=== PATIENT | female | born 1945 | race Caucasian/White ===

== ENCOUNTER 2021-04-07 04:29 | Inpatient (IN) | payer OTHER ==
[~2021-04-07] VITALS: Ht 160 cm; Wt 56.7 kg
[2021-04-07 04:51] LABS: RED BLOOD COUNT 3.63 M/UL (4.00-5.10); WHITE BLOOD COUNT 15.1 K/UL (4.5-11.0)
[2021-04-07 05:18] LABS: BUN/CREATININE RATIO 19 (0-10)
[2021-04-07 06:34] LABS: ADENOVIRUS F 40/41 Not Detected (Negative); ASTROVIRUS Not Detected (Negative); CAMPYLOBACTER Not Detected (Negative); CRYPTOSPORIDIUM Not Detected (Negative); E.COLI 0157 Not Detected (Negative); ENTAMOEBA HISTOLYTICA Not Detected (Negative); ENTEROAGGREGATIVE E.COLI (EAEC Not Detected (Negative); ENTEROPATHOGENIC E.COLI (EPEC) Not Detected (Negative); ENTEROTOXIGENIC E.COLI (ETEC) Not Detected (Negative); GIARDIA LAMBLIA Not Detected (Negative); NOROVIRUS GI/GII Not Detected (Negative); PLESIOMONAS SHIGELLOIDES Not Detected (Negative); ROTOVIRUS A Not Detected (Negative); SALMONELLA Not Detected (Negative); SAPOVIRUS Not Detected (Negative); SHIG/ENTEROINVAS.ECOLI (EIEC) Not Detected (Negative); SHIGA-LIK TOX.PRO.E.COLI (STEC Not Detected (Negative); VIBRIO Not Detected (Negative); VIBRIO CHOLERAE Not Detected (Negative); YERSINIA ENTEROCOLITICA Not Detected (Negative)
[2021-04-07 09:58] LABS: CLOSTRIDIUM DIFFICILE TOX A/B Not Detected (Negative)
[2021-04-07] MEDS ORDERED: PROAIR HFA8.5 GM INH (14:09)
[2021-04-07] MEDS ORDERED: ZOFRAN ODT 4 MG4 MG PO (14:10)
[2021-04-07] MEDS ORDERED: CRESTOR10 MG PO (14:10)
[2021-04-07] MEDS ORDERED: PREDNISONE10 MG PO (14:10)
[2021-04-07] MEDS ORDERED: METOPROLOL SUCC25 MG PO (14:10)
[2021-04-07] MEDS ORDERED: LEVOTHYROXINE88 MCG PO (14:11)
[2021-04-07] MEDS ORDERED: FAMOTIDINE20 MG PO (14:11)
[2021-04-07] MEDS ORDERED: PYRIDOSTIGMINE60 MG PO (14:12)
[2021-04-07] MEDS ORDERED: ELIQUIS5 MG PO (14:12)
[2021-04-08 08:50] LABS: BUN/CREATININE RATIO 20 (0-10)
[2021-04-08 17:19] LABS: HEMOGLOBIN 9.9 gm/dl (12.3-15.3); RED BLOOD COUNT 3.29 M/UL (4.00-5.10); WHITE BLOOD COUNT 14.7 K/UL (4.5-11.0)
[2021-04-09 03:57] LABS: HEMOGLOBIN 9.2 gm/dl (12.3-15.3); RED BLOOD COUNT 3.12 M/UL (4.00-5.10); WHITE BLOOD COUNT 13.7 K/UL (4.5-11.0)
[2021-04-09 10:14] LABS: BUN/CREATININE RATIO 24 (0-10)
[2021-04-09 12:05] LABS: HEMOGLOBIN 9.7 gm/dl (12.3-15.3); RED BLOOD COUNT 3.31 M/UL (4.00-5.10); WHITE BLOOD COUNT 15.7 K/UL (4.5-11.0)
[2021-04-09 13:51] LABS: BUN/CREATININE RATIO 28 (0-10)
[2021-04-09] MEDS ORDERED: LOW DOSE ASPIRI81 MG PO (16:27)
[2021-04-09] MEDS ORDERED: FLONASE 0.05% N16 GM (16:28)
[2021-04-10 05:37] LABS: RED BLOOD COUNT 3.06 M/UL (4.00-5.10); WHITE BLOOD COUNT 14.8 K/UL (4.5-11.0)
[2021-04-10 06:05] LABS: BUN/CREATININE RATIO 26 (0-10)
[2021-04-11 04:08] LABS: HEMOGLOBIN 8.8 gm/dl (12.3-15.3); RED BLOOD COUNT 2.95 M/UL (4.00-5.10)
[2021-04-11 05:18] LABS: BUN/CREATININE RATIO 31 (0-10)
[2021-04-13] MEDS ORDERED: ROBITUSSIN AC PO (11:28)
[2021-04-13] MEDS ORDERED: PYRIDOSTIGMINE60 MG PO (11:28)
[2021-04-13] MEDS ORDERED: BENZONATATE100 MG PO (11:28)
--- NOTE | 2021-04-14 17:54 | NUR ---
AGREE WITH PREVIOUS CARE TRANSITION MGR. ORIENTED PATIENT TO FLOOR AND UNIT.
[2021-04-16 04:17] LABS: HEMOGLOBIN 9.5 gm/dl (12.3-15.3); RED BLOOD COUNT 3.12 M/UL (4.00-5.10); WHITE BLOOD COUNT 21.6 K/UL (4.5-11.0)
[2021-04-16 04:28] LABS: BUN/CREATININE RATIO 42 (0-10)
[2021-04-16] MEDS ORDERED: MAGNESIUM400 MG PO (09:36)
[2021-04-17] MEDS ORDERED: PREDNISONE10 MG PO (10:25)
[2021-04-17] MEDS ORDERED: IPRAT-ALBUT 0.5-3 ML INH (10:31)
[2021-04-17] MEDS ORDERED: PULMICORT0.5 MG/21 INH (10:31)
[2021-04-17] MEDS ORDERED: ACETAMINOPHEN325 MG PO (10:31)
== END 2021-04-17 16:02 | DRG 177 ==
LOC: ER1 04:29 → MED SURG 4 04-09 11:17 → CDU 04-09 11:17 → 3 EAST 04-11 15:04 → PROG CARE 04-12 07:29 → MED SURG 4 04-14 17:26
PROVIDERS: Internal Medicine; Physician Assistant; ADMIT Internal Medicine Infectious Disease
PROC: 5A0955A Assistance with Respiratory Ventilation, Greater than 96 Consecutive Hours, High Flow/Velocity Cannula (ICD-10-PCS; 2021-04-07)
PROC: 8E0ZXY6 Isolation (ICD-10-PCS; principal; 2021-04-09)
DX: U07.1 COVID-19 (principal); J96.01 Acute respiratory failure with hypoxia; J12.82 Pneumonia due to coronavirus disease 2019; N17.0 Acute kidney failure with tubular necrosis; J47.0 Bronchiectasis with acute lower respiratory infection; N13.2 Hydronephrosis with renal and ureteral calculous obstruction; T38.0X5A Adverse effect of glucocorticoids and synthetic analogues, initial encounter; H91.90 Unspecified hearing loss, unspecified ear; J84.10 Pulmonary fibrosis, unspecified; I48.0 Paroxysmal atrial fibrillation; J43.9 Emphysema, unspecified; Z96.653 Presence of artificial knee joint, bilateral; G70.00 Myasthenia gravis without (acute) exacerbation; E03.9 Hypothyroidism, unspecified; D72.828 Other elevated white blood cell count; K21.9 Gastro-esophageal reflux disease without esophagitis; R31.0 Gross hematuria; E87.5 Hyperkalemia; R53.81 Other malaise; E87.6 Hypokalemia; E83.51 Hypocalcemia; Z79.01 Long term (current) use of anticoagulants; Z79.82 Long term (current) use of aspirin; Z90.49 Acquired absence of other specified parts of digestive tract; Z98.42 Cataract extraction status, left eye; Z98.41 Cataract extraction status, right eye; Z87.891 Personal history of nicotine dependence; Z83.3 Family history of diabetes mellitus; Z82.49 Family history of ischemic heart disease and other diseases of the circulatory system; Z87.19 Personal history of other diseases of the digestive system; Z93.3 Colostomy status; Z98.891 History of uterine scar from previous surgery
CPT/HCPCS: 36415; 36600; 71045; 80048; 80053; 81001; 82550; 82553; 82803; 83605; 83615; 83690; 83735; 83874; 84132; 84484; 85025; 85027; 86140; 87040; 87081; 87086; 87507; 92526; 92610; 93005; 94640; 94664; 94760; 96374; 96375; 96376; 97110; 97110-GP-CQ; 97162; 97166; 97530; 97530-GP-CQ; 99285; J1650; J2020; J2185; J2270; J2920; J2930; J7030; Q9967; U0002

== ENCOUNTER → 2021-06-21 | Outpatient (CLI) | payer OTHER ==
[~2021-06-21] MED LIST: ACETAMINOPHEN325 MG PO; BENZONATATE100 MG PO; CRESTOR10 MG PO; ELIQUIS5 MG PO; FAMOTIDINE20 MG PO; FLONASE 0.05% N16 GM; IPRAT-ALBUT 0.5-3 ML INH; LEVOTHYROXINE88 MCG PO; LOW DOSE ASPIRI81 MG PO; MAGNESIUM400 MG PO; METOPROLOL SUCC25 MG PO; PREDNISONE10 MG PO; PROAIR HFA8.5 GM INH; PULMICORT0.5 MG/21 INH; PYRIDOSTIGMINE60 MG PO; ROBITUSSIN AC PO; ZOFRAN ODT 4 MG4 MG PO
== END ==
LOC: EXRD 13:20
DX: J44.9 Chronic obstructive pulmonary disease, unspecified (principal); R91.8 Other nonspecific abnormal finding of lung field
CPT/HCPCS: 71046